=== PATIENT | male | born 2000 | race Caucasian/White ===

== ENCOUNTER 2018-11-17 22:20 | Emergency (ER) | payer OTHER ==
[~2018-11-17] VITALS: Ht 180.3 cm; Wt 74.8 kg
[2018-11-17] MEDS ORDERED: TRAZODONE HCL150 MG PO (22:36)
[2018-11-17] MEDS ORDERED: FLUOXETINE HCL20 MG PO (22:36)
[2018-11-17] MEDS ORDERED: RANITIDINE HCL150 M1 PO (22:37)
[2018-11-17] MEDS ORDERED: ARNUITY ELLIP100 MCG INH (22:37)
[2018-11-17] MEDS ORDERED: VENTOLIN HFA18 GM INH (22:38)
== END 2018-11-18 00:06 | disposition home or self-care (01) ==
LOC: ED 22:20
DX: S02.31XA Fracture of orbital floor, right side, initial encounter for closed fracture (principal); S02.40CA Maxillary fracture, right side, initial encounter for closed fracture; S00.03XA Contusion of scalp, initial encounter; Y04.8XXA Assault by other bodily force, initial encounter; J45.909 Unspecified asthma, uncomplicated; K21.9 Gastro-esophageal reflux disease without esophagitis; Z79.899 Other long term (current) drug therapy
CPT/HCPCS: 70450; 70486; 90471; 90715; 99284-25

== ENCOUNTER 2021-06-07 09:53 | Day surgery (SDC) | payer OTHER ==
[~2021-06-07] VITALS: Ht 180.3 cm; Wt 88.6 kg
[~2021-06-07 09:53] MED LIST: ARNUITY ELLIP100 MCG INH; FLUOXETINE HCL20 MG PO; MELATONIN5 M2 PO; OMEPRAZOLE20 MG PO; RANITIDINE HCL150 M1 PO; TRAZODONE HCL150 MG PO; VENTOLIN HFA18 GM INH; ZESTRIL20 MG PO
--- NOTE | 2021-06-07 09:55 | NUR ---
RT COLLECTED A RAPID COVID 19 SWAB WITH NO COMPLICATIONS USING IN HOUSE LAB AT THIS TIME.
[2021-06-07] MEDS ORDERED: ASPIRIN325 MG PO (10:32)
--- NOTE | 2021-06-07 12:32 | NUR ---
PATIENT PATIENTLY WAITING FOR PROCEDURE TO START. IVF TKO. DENIES NEEDS OTHER THAN HUNGER AND THIRST. GUARDS AT BEDSIDE
--- NOTE | 2021-06-07 15:05 | NUR ---
06/07/21 1505 Jose Palafox RESPONDS TO VOICE ON ENTRY TO PACU. ORIENTED TO TIME AND SITUATION. DENIES PAIN OR NAUSEA. FALLS ASLEEP EASILY.
--- NOTE | 2021-06-08 10:35 | OR ---
[facility] [address], [place] [address] Signed DATE OF OPERATION: 06/07/2021 SURGEON: Colton Bueno MD PREOPERATIVE DIAGNOSIS: Previous history of painful defecation and blood per rectum (now resolved). POSTOPERATIVE DIAGNOSES: Normal colon to cecum. No evidence of fissure, hemorrhoids, polyps, or colitis. PROCEDURE: Total colonoscopy to cecum. ANESTHESIA: Intravenous sedation, fentanyl 100 mcg, Versed 7 mg. INDICATION: This 21-year-old man is a prisoner at [facility] and a patient of ROSALIA Noriega. He was seen by me on March 12, 2021 upon referral for painful rectal bleeding. He declined an anorectal examination at that time in the [facility]. He is admitted to undergo colonoscopy at this time. Of note, he was prescribed diltiazem ointment as well as a fiber supplement and his symptoms seem to have cleared up now. He understands the risk of bleeding, infection, and perforation related to colonoscopy and wished to proceed. FINDINGS: Prep was excellent. Complete colonoscopy was undertaken to the cecum. It was normal. There was no sign of fissure. No sign of hemorrhoids, polyps, diverticular formation, colitis, or cancer. DESCRIPTION OF PROCEDURE: The patient was brought to the endoscopy suite and placed in lateral decubitus position. Intravenous sedation was administered to the point of slurred speech and nystagmus with full cardiopulmonary monitoring. Digital rectal examination was normal. An Olympus video colonoscope was passed in the rectum and manipulated throughout the colon ultimately intubating the cecum itself. Ileocecal valve and appendiceal orifice Electronically Signed By: COLTON BUENO MD 06/08/21 1035 PATIENT NAME: ERIC ALMANZA OPERATIVE REPORT DATE OF : [birth year] REPORT #: [id number] PHYSICIAN: COLTON BUENO MD PCP: CLEOPATRA MCMAHON MD REPORT IS CONFIDENTIAL AND NOT TO BE RELEASED WITHOUT AUTHORIZATION [facility] [address], [place] [address] Signed were normal. The scope was withdrawn from that point and examination throughout showed no sign of abnormality at all. Retroflexed view of the rectum was normal showing no sign of hemorrhoids and careful withdrawal of the scope through the anal canal showed no fissure. The scope was removed and the patient was taken to the recovery room in good condition. CONCLUDING DIAGNOSIS: Most likely symptoms previously were related to an anal fissure which has now healed. PLAN: Recommend continued use of a high-fiber diet. He is no longer on diltiazem so far as I can tell. If he has recurrent symptoms, he will let ROSALIA Noriega know about that at which time I will re-evaluate. MD DELGADO Holloway/ROZ /[id number] cc: ROSALIA Ivey [facility] Copies: ABELARDO ALMODOVAR ~ Electronically Signed By: COLTON BUENO MD 06/08/21 1035 PATIENT NAME: ERIC ALMANZA ANDREW OPERATIVE REPORT DATE OF : [birth year] REPORT #: [id number] PHYSICIAN: COLTON BUENO MD PCP: CLEOPATRA MCMAHON MD REPORT IS CONFIDENTIAL AND NOT TO BE RELEASED WITHOUT AUTHORIZATION
== END 2021-06-07 16:00 | disposition home or self-care (01) ==
LOC: OPS 09:53 → DS 09:53 → OPS 13:00 → DS 13:00 → OPS 16:00
PROVIDERS: ATTEND Surgery
PROC: 0DJD8ZZ Inspection of Lower Intestinal Tract, Via Natural or Artificial Opening Endoscopic (ICD-10-PCS; principal; 2021-06-07 13:00)
DX: K62.5 Hemorrhage of anus and rectum (principal); K62.89 Other specified diseases of anus and rectum; I10 Essential (primary) hypertension; J45.909 Unspecified asthma, uncomplicated; Z20.822 Contact with and (suspected) exposure to COVID-19; Z86.010 Personal history of colon polyps
CPT/HCPCS: 99153; C9803; G0500; J2250; J3010; U0003

== ENCOUNTER 2023-02-10 13:25 | Emergency (ER) | payer OTHER ==
[~2023-02-10] VITALS: Ht 180.3 cm; Wt 81.7 kg
[~2023-02-10 13:25] MED LIST changes: +ASPIRIN325 MG PO
== END 2023-02-10 15:47 | disposition home or self-care (01) ==
LOC: ED 13:25
DX: S61.212A Laceration without foreign body of right middle finger without damage to nail, initial encounter (principal); S61.001A Unspecified open wound of right thumb without damage to nail, initial encounter; S61.204A Unspecified open wound of right ring finger without damage to nail, initial encounter; W26.8XXA Contact with other sharp object(s), not elsewhere classified, initial encounter; J45.909 Unspecified asthma, uncomplicated; K21.9 Gastro-esophageal reflux disease without esophagitis; Z88.8 Allergy status to other drugs, medicaments and biological substances; Z79.899 Other long term (current) drug therapy; Z79.82 Long term (current) use of aspirin
CPT/HCPCS: 12001; 99282-25; A9270